=== PATIENT | female | born 2000 | race Caucasian/White ===

== ENCOUNTER 2018-10-10 17:31 | Emergency (ER) | payer BC ==
[~2018-10-10] VITALS: Ht 167.6 cm; Wt 58.6 kg
[2018-10-10 17:39] VITALS: TEMP 98.6
[2018-10-10] MEDS ORDERED: MACROBID 1100 MG/CAP PO (18:19)
[2018-10-10] MEDS ORDERED: VITAMIN B650 MG (18:23)
[2018-10-10 18:26] LABS: BASO % 0.2 % (0.0-2.0); EOS # 0.1 (0.0-0.7); EOS % 1.2 % (0-4.0); GRAN # 2.8 (1.4-6.5); GRAN % 64.5 % (42.2-75.2); HEMATOCRIT 39.4 % (35.0-45.0); HEMOGLOBIN 13.4 g/dl (12.0-15.0); LYMPH % 23.2 % (20.0-51.0); MEAN CELL VOLUME 91 fl (80.0-95.0); MEAN CORPUSCULAR HEMOGLOBIN 31 pg (26.0-32.0); MEAN CORPUSCULAR HGB CONC 34 g/dl (33.0-37.0); MONO # 0.5 (0.1-0.6); MONO % 10.7 % (1.7-9.3); PLATELET COUNT 172 K/mm3 (130-400); RED BLOOD COUNT 4.33 M/mm3 (4.10-5.30); REDCELL DISTRIBUTION WIDTH-CV 11.3 % (11.5-14.5)
[2018-10-10 18:33] LABS: MUCOUS Present /lpf; PH 6 (5-8); URINE APPEARANCE Clear; URINE BACTERIA None Seen /hpf; URINE BILIRUBIN Negative (NEGATIVE); URINE BLOOD Negative (NEGATIVE); URINE COLOR Amber; URINE GLUCOSE Negative (NEGATIVE); URINE KETONE Negative (NEGATIVE); URINE LEUKOCYTE ESTERASE Negative (NEGATIVE); URINE NITRATE Negative (NEGATIVE); URINE PROTEIN(semi-quant) Negative (NEGATIVE); URINE UROBILINOGEN >=4.0 mg/dL (NEGATIVE); URINE WBC 0-2 /hpf
[2018-10-10 18:34] LABS: ALBUMIN 4.5 gm/dL (3.5-5.0); BILIRUBIN,TOTAL 0.3 mg/dL (0.0-1.0); CREATININE, serum 0.41 (0.52-1.25); POTASSIUM 3.6 mmol/L (3.4-5.0); TOTAL PROTEIN 7.7 gm/dL (6.4-8.2)
[2018-10-10 18:41] LABS: COLLECTION METHOD CLEAN CATCH
[2018-10-10] MEDS ORDERED: REGLAN 5MG T5 MG/TAB PO (19:51)
[2018-10-10 20:01] VITALS: BP 101/70; PULSE 85
== END 2018-10-10 20:07 | disposition home or self-care (01) ==
LOC: COL.ER 17:31
PROVIDERS: Emergency Medicine
DX: O21.1 Hyperemesis gravidarum with metabolic disturbance (principal); Z3A.11 11 weeks gestation of pregnancy
CPT/HCPCS: J2765; J7030

== ENCOUNTER 2018-12-22 20:38 | Emergency (ER) | payer BC ==
[~2018-12-22] VITALS: Ht 165.1 cm; Wt 61.4 kg
[~2018-12-22 20:38] MED LIST: MACROBID 1100 MG/CAP PO; REGLAN 5MG T5 MG/TAB PO; VITAMIN B650 MG
[2018-12-22 21:11] LABS: COLLECTION METHOD CLEAN CATCH
[2018-12-22 21:18] LABS: BASO % 0.1 % (0.0-2.0); EOS # 0.1 (0.0-0.7); EOS % 1.3 % (0-4.0); GRAN # 5.2 (1.4-6.5); GRAN % 72.8 % (42.2-75.2); HEMATOCRIT 34.4 % (35.0-45.0); HEMOGLOBIN 12.2 g/dl (12.0-15.0); LYMPH # 1.4 (1.2-3.4); LYMPH % 19.2 % (20.0-51.0); MEAN CELL VOLUME 91 fl (80.0-95.0); MEAN CORPUSCULAR HEMOGLOBIN 32 pg (26.0-32.0); MEAN CORPUSCULAR HGB CONC 36 g/dl (33.0-37.0); MEAN PLATELET VOLUME 9.9 fl (7.4-10.4); MONO # 0.5 (0.1-0.6); MONO % 6.3 % (1.7-9.3); PLATELET COUNT 181 K/mm3 (130-400); RED BLOOD COUNT 3.77 M/mm3 (4.10-5.30)
[2018-12-22 21:25] LABS: MUCOUS Present /lpf; PH 6 (5-8); URINE APPEARANCE Cloudy; URINE BACTERIA Rare /hpf; URINE BILIRUBIN Negative (NEGATIVE); URINE BLOOD Negative (NEGATIVE); URINE COLOR Yellow; URINE GLUCOSE Negative (NEGATIVE); URINE KETONE Negative (NEGATIVE); URINE LEUKOCYTE ESTERASE 2+ (NEGATIVE); URINE NITRATE Negative (NEGATIVE); URINE PROTEIN(semi-quant) Negative (NEGATIVE); URINE UROBILINOGEN >=4.0 mg/dL (NEGATIVE)
[2018-12-22 21:28] LABS: ALANINE AMINOTRANSFERASE 28 U/L (9-52); ALBUMIN 4.1 gm/dL (3.5-5.0); ALKALINE PHOSPHATASE 52 U/L (50-136); ANION GAP 9 mmol/L (7-16); AST,SGOT 21 U/L (15-37); BILIRUBIN,TOTAL 0.3 mg/dL (0.0-1.0); BLOOD UREA NITROGEN 6 mg/dL (7-17); CALCIUM 9.1 mg/dL (8.4-10.2); CARBON DIOXIDE 23 mmol/L (22-30); CHLORIDE 105 mmol/L (98-107); GLUCOSE 91 mg/dL (74-106); POTASSIUM 3.5 mmol/L (3.4-5.0); SODIUM 138 mmol/L (137-145); TOTAL PROTEIN 7.4 gm/dL (6.4-8.2)
[2018-12-22 21:29] LABS: C-REACTIVE PROTEIN < 0.5 mg/dL (0.0-0.9)
[2018-12-22 22:23] VITALS: BP 100/62; PULSE 82; TEMP 98.1
== END 2018-12-22 22:24 | disposition home or self-care (01) ==
LOC: COL.ER 20:38
PROVIDERS: Family Medicine
DX: O99.612 Diseases of the digestive system complicating pregnancy, second trimester (principal); K52.9 Noninfective gastroenteritis and colitis, unspecified; Z3A.21 21 weeks gestation of pregnancy
CPT/HCPCS: J2550; J7030

== ENCOUNTER 2019-03-01 11:56 | Emergency (ER) | payer BC ==
[~2019-03-01] VITALS: Ht 162.6 cm; Wt 63.6 kg
[2019-03-01 12:04] VITALS: TEMP 97.4
[2019-03-01] MEDS ORDERED: CLARITIN 1010 MG/TAB PO (12:04)
[2019-03-01 12:29] LABS: BASO % 0.2 % (0.0-2.0); EOS % 0.3 % (0-4.0); GRAN # 4.5 (1.4-6.5); GRAN % 75.1 % (42.2-75.2); HEMOGLOBIN 10.5 g/dl (12.0-15.0); LYMPH # 1.1 (1.2-3.4); LYMPH % 17.6 % (20.0-51.0); MEAN CELL VOLUME 92 fl (80.0-95.0); MEAN CORPUSCULAR HEMOGLOBIN 30 pg (26.0-32.0); MEAN CORPUSCULAR HGB CONC 33 g/dl (33.0-37.0); MEAN PLATELET VOLUME 9.6 fl (7.4-10.4); MONO # 0.4 (0.1-0.6); MONO % 6.5 % (1.7-9.3); PLATELET COUNT 162 K/mm3 (130-400); RED BLOOD COUNT 3.52 M/mm3 (4.10-5.30); REDCELL DISTRIBUTION WIDTH-CV 12.3 % (11.5-14.5)
[2019-03-01 12:30] LABS: HEMATOCRIT 32.3 % (35.0-45.0)
[2019-03-01 12:34] LABS: ALBUMIN 3.9 gm/dL (3.5-5.0); BILIRUBIN,TOTAL 0.5 mg/dL (0.0-1.0); CALCIUM 8.9 mg/dL (8.4-10.2); CREATININE, serum 0.48 (0.52-1.25); POTASSIUM 3.8 mmol/L (3.4-5.0); TOTAL PROTEIN 7.1 gm/dL (6.4-8.2)
[2019-03-01 13:14] LABS: COLLECTION METHOD CLEAN CATCH
[2019-03-01 14:07] LABS: MUCOUS Present /lpf; PH 9 (5-8); URINE APPEARANCE Hazy; URINE BACTERIA Rare /hpf; URINE BILIRUBIN Negative (NEGATIVE); URINE BLOOD Negative (NEGATIVE); URINE COLOR Yellow; URINE GLUCOSE Negative (NEGATIVE); URINE KETONE 1+ (NEGATIVE); URINE LEUKOCYTE ESTERASE Negative (NEGATIVE); URINE NITRATE Negative (NEGATIVE); URINE PROTEIN(semi-quant) 2+ (NEGATIVE); URINE RBC 0-2 /hpf
[2019-03-01] MEDS ORDERED: MACROBID 1100 MG/CAP PO ×2 (14:22)
[2019-03-01] MEDS ORDERED: OMNICEF 300MG300 MG PO (14:26)
[2019-03-01 14:44] VITALS: BP 109/58; PULSE 91
== END 2019-03-01 14:44 | disposition home or self-care (01) ==
LOC: COL.ER 11:56
PROVIDERS: Emergency Medicine
DX: O21.2 Late vomiting of pregnancy (principal); O23.43 Unspecified infection of urinary tract in pregnancy, third trimester; R82.71 Bacteriuria; Z3A.30 30 weeks gestation of pregnancy
CPT/HCPCS: J2405; J2765; J7030

== ENCOUNTER → 2019-04-13 | Outpatient (CLI) | payer BC ==
[~2019-04-13] VITALS: Ht 162.6 cm; Wt 70.9 kg
[~2019-04-13] MED LIST changes: +CLARITIN 1010 MG/TAB PO; +NATURAL IRON65 MG; +OMNICEF 300MG300 MG PO; +PRILOSEC10 MG PO; +VALTREX 50500 MG/TAB PO
[2019-04-13 08:00] VITALS: BP 107/77; PULSE 122
[2019-04-13 08:30] VITALS: BP 109/66; PULSE 118
[2019-04-13 09:00] VITALS: BP 104/71; PULSE 105
[2019-04-13 09:00] LABS: COLLECTION METHOD CLEAN CATCH
[2019-04-13 09:08] LABS: BASO % 0.1 % (0.0-2.0); EOS % 0.3 % (0-4.0); GRAN # 8.7 (1.4-6.5); GRAN % 85.7 % (42.2-75.2); LYMPH # 0.7 (1.2-3.4); MEAN CELL VOLUME 87 fl (80.0-100.0); MEAN CORPUSCULAR HGB CONC 31 g/dl (33.0-37.0); MEAN PLATELET VOLUME 9.7 fl (7.4-10.4); MONO # 0.7 (0.1-0.6); MONO % 6.5 % (1.7-9.3); PLATELET COUNT 172 K/mm3 (130-400); RED BLOOD COUNT 3.48 M/mm3 (4.10-5.30); REDCELL DISTRIBUTION WIDTH-CV 12.8 % (11.5-14.5)
[2019-04-13 09:16] LABS: HEMATOCRIT 30.3 % (37.0-47.0); HEMOGLOBIN 9.5 g/dl (12.5-16.0); MEAN CORPUSCULAR HEMOGLOBIN 27 pg (27.0-31.0)
[2019-04-13 09:30] VITALS: PULSE 106
[2019-04-13 09:34] LABS: MUCOUS Present /lpf; PH 6 (5-8); SQUAMOUS EPITHELIAL 20-50 /hpf; URINE APPEARANCE Turbid; URINE BACTERIA Many /hpf; URINE BILIRUBIN Negative (NEGATIVE); URINE BLOOD 2+ (NEGATIVE); URINE COLOR Amber; URINE GLUCOSE Negative (NEGATIVE); URINE KETONE Negative (NEGATIVE); URINE LEUKOCYTE ESTERASE 2+ (NEGATIVE); URINE NITRATE Negative (NEGATIVE); URINE PROTEIN(semi-quant) 2+ (NEGATIVE); URINE WBC 20-50 /hpf
[2019-04-13 10:00] VITALS: BP 82/53; PULSE 100
--- NOTE | 2019-04-13 10:12 | NUR ---
Vistaril 25 mg, kflex 500 mg given as ordered by Dr. Richards. [facility] called kflex order in. 1030 Instructions given, verbalizes understanding. Dismissed to home with spouse, alert, ambulatory, stable.
== END ==
LOC: LDRO 03-01 11:52
PROVIDERS: Obstetrics & Gynecology
DX: O26.893 Other specified pregnancy related conditions, third trimester (principal); Z3A.36 36 weeks gestation of pregnancy

== ENCOUNTER 2019-04-25 06:06 | Inpatient (IN) | payer BC ==
[2019-04-25] VITALS (50 sets, daily range): BP systolic 93–139; BP diastolic 54–87; PULSE 66–150; TEMP 97.7–98.9
[~2019-04-25] VITALS: Ht 162.6 cm; Wt 70.9 kg
--- NOTE | 2019-04-25 06:20 | NUR ---
Patient arrives ambulatory with spouse with complaints of SROM at 0530 this morning. Patient reports occasional cramping, denies vaginal bleeding and reports normal movement. Patient changes into gown, EFM explained and placed. VS obtained. 0630- Amniotrace positive. SVE /-3, unchanged from office. Patient updated on plan of care. See physician notification. Admit orders recieved, patient updated on plan of care. 0715- IV started, labs obtained. LR infusing per protocol. 0720- Ancef infusing per order and protocol. See EMAR. Consents explained and signed. Patient denies questions. Pitocin administration reviewed, patient agrees and denies questions. 0745- Pitocin started at 2 mU per protocol and order.
[2019-04-25] MEDS ORDERED: PROMETHAZINE12.5 M5 PO (06:43)
[2019-04-25] MEDS ORDERED: BENADRYL25 M2 PO (06:43)
[2019-04-25] MEDS ORDERED: TUMS500 MG (06:45)
[2019-04-25 08:02] LABS: BASO % 0.1 % (0.0-2.0); EOS % 0.4 % (0-4.0); GRAN # 4.8 (1.4-6.5); LYMPH # 1.3 (1.2-3.4); LYMPH % 19.3 % (20.0-51.0); MEAN CELL VOLUME 86 fl (80.0-100.0); MEAN CORPUSCULAR HGB CONC 31 g/dl (33.0-37.0); MEAN PLATELET VOLUME 9.7 fl (7.4-10.4); MONO # 0.5 (0.1-0.6); MONO % 7.8 % (1.7-9.3); PLATELET COUNT 208 K/mm3 (130-400); RED BLOOD COUNT 3.32 M/mm3 (4.10-5.30); REDCELL DISTRIBUTION WIDTH-CV 13.5 % (11.5-14.5)
--- NOTE | 2019-04-25 08:05 | NUR ---
Patient sitting upright in bed.
[2019-04-25 08:06] LABS: HEMATOCRIT 28.4 % (37.0-47.0); HEMOGLOBIN 8.9 g/dl (12.5-16.0); MEAN CORPUSCULAR HEMOGLOBIN 27 pg (27.0-31.0)
--- NOTE | 2019-04-25 08:40 | NUR ---
Dr. Jenkins on unit. Reviews FHR strip and contraction pattern. 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 See physician documentation. 2594- Dr. Jenkins at bedside. Discussing plan of care for SVE with patient and MFM recommendations. Exam per provider reveals no active HSV outbreak. SVE 2. Orders to continue Pitocin augmentation.
--- NOTE | 2019-04-25 10:25 | NUR ---
Patient standing at the bedside. Intermittent maternal heart rate tracing due to maternal movement. RN at bedside adjusting monitors. Patient tearful with contractions. Requests Vinnie escobedo [employer]CE[employer]OGR[employer]HER [employer] notified and in transit.
--- NOTE | 2019-04-25 10:50 | NUR ---
1050- Vinnie Hale CH[employer] LOFT WORKER at bedside. Patient assisted to sit on edge of bed. 1102- Single shot per epidural by Vinnie Hale CRNA. Patient tolerates well. no adverse reactions noted. See anesthesia record. 1108- Patient repositioned WR following epidural placement. Patient updated on safety and plan of care. Denies need.
--- NOTE | 2019-04-25 15:10 | NUR ---
Patient sitting upright in bed, emesis noted. Zofran given, see EMAR.
--- NOTE | 2019-04-25 17:30 | NUR ---
Patient RL position, contractions tracing inverted via toco.
--- NOTE | 2019-04-25 18:30 | NUR ---
1814- Bedside report from PEDRO Ordonez. remains on L+D unit. Patient yelling out that she needs to push and that the pressure is too intense. RN to bedside. 1819- SVE Complete/+2. notified. Patient educated on pushing and helped into adequate position. 1821- Patient begins to push with contractions. 1829- called to bedside for delivery. Room prepared for imminent vaginal delivery. Nursery RN notified. 1832- Patient begins to push with contractions with MD. FHR deceleration noted down to 50bpm. updated patient on plan of care and immediate need for episiotomy and quick delivery. 1837- of viable baby boy. Cord clamped and cut by FOB. Cord blood obtained. Pitocin off. NB care assumed by [facility] Nursery RN. 1842- Spontaneous delivery of intact placenta. Pitocin infusing at 333 ml/hr per protocol. Fundus massaged to firm by . Episiotomy and 2nd degree perineal laceration repaired by . Pericare provided. Ice pack applied. Plan of care discussed. Bed in locked, low position. 1844- PP Recovery.
--- NOTE | 2019-04-25 21:00 | NUR ---
Patient is requesting to move to PP room. 2 RN's at bedside. Patient able to sit up at edge of bed independently and pivot to wheelchair with assist of one. Patient pivoted to toilet but unable to void. Pericare provided. Clean gown on. Ice pack applied. Patient moved to PP room via wheelchair.
[2019-04-26] VITALS: BP 104/69; PULSE 78; TEMP 98.4
[2019-04-26 04:15] VITALS: BP 93/50; PULSE 75; TEMP 97.4
[2019-04-26 07:50] VITALS: BP 109/68; PULSE 96; TEMP 98.4
--- NOTE | 2019-04-26 08:30 | NUR ---
Pt states feeling slightly dizzy at times when ambulating. Inital Hgb 8.0. Fundus checked, bleeding WNL and VSS. 0900:Dr Jenkins here and notified. Will check H&H.
--- NOTE | 2019-04-26 09:07 | NUR ---
Initial visit; Patient thanked for offering congratulations for the of her son. [facility] thanked family for choosing our hospital.
[2019-04-26 10:47] LABS: HEMATOCRIT 25.8 % (37.0-47.0)
[2019-04-26 15:50] VITALS: BP 110/54; PULSE 100; TEMP 98
[2019-04-26 21:30] VITALS: BP 98/60; PULSE 91; TEMP 98.3
[2019-04-27] MEDS ORDERED: ROXICODONE 55 MG/TAB PO (08:38)
[2019-04-27] MEDS ORDERED: COLACE 100100 MG/CAP PO (08:39)
[2019-04-27 09:58] VITALS: BP 104/60; PULSE 98; TEMP 98.1
== END 2019-04-27 13:45 | disposition home or self-care (01) | DRG 806 ==
LOC: LDRO 06:06 → OB 07:03 → LDR 07:03 → OB 21:00
PROVIDERS: ADMIT Obstetrics & Gynecology
PROC: 10E0XZZ Delivery of Products of Conception, External Approach (ICD-10-PCS; principal; 2019-04-25)
PROC: 0W8NXZZ Division of Female Perineum, External Approach (ICD-10-PCS; 2019-04-25)
DX: O42.02 Full-term premature rupture of membranes, onset of labor within 24 hours of rupture (principal); O98.32 Other infections with a predominantly sexual mode of transmission complicating childbirth; Z37.0 Single live birth; Z3A.39 39 weeks gestation of pregnancy; A60.00 Herpesviral infection of urogenital system, unspecified; O99.344 Other mental disorders complicating childbirth; F41.8 Other specified anxiety disorders; O99.02 Anemia complicating childbirth; D64.9 Anemia, unspecified; O99.824 Streptococcus B carrier state complicating childbirth; R87.612 Low grade squamous intraepithelial lesion on cytologic smear of cervix (LGSIL); K21.9 Gastro-esophageal reflux disease without esophagitis; O99.62 Diseases of the digestive system complicating childbirth; Z88.6 Allergy status to analgesic agent; Z88.1 Allergy status to other antibiotic agents; Z88.0 Allergy status to penicillin; Z88.8 Allergy status to other drugs, medicaments and biological substances
CPT/HCPCS: J0690; J2405; J2550; J2590; J2795; J7120